=== PATIENT | female | born 1960 | race Caucasian/White ===

== ENCOUNTER → 2016-11-23 | Outpatient (CLI) | payer OTHER | END | disposition home or self-care (01) | LOC: C.PATHSPEC 16:18 | PROVIDERS: ATTEND Dermatology | DX: L82.1 Other seborrheic keratosis (principal) ==

== ENCOUNTER → 2016-12-04 | Outpatient (CLI) | payer OTHER ==
--- NOTE | 2016-12-04 15:09 | MAMMOGRAPHY REPORT ---
BILATERAL DIGITAL DIAGNOSTIC MAMMOGRAM TOMOSYNTHESIS WITH CAD AND TARGETED LEFT ULTRASOUND: 12/04/2016 CLINICAL HISTORY: The patient reports a palpable lump in her left breast for approximately 2 weeks. She also noted a pulling sensation involving the left breast approximately one month ago when she lif mikel her left arm; the pulling sensation has improved and now only intermittently occurs when lifting her arm. History of benign left breast excisional biopsy. TECHNIQUE: Breast tomosynthesis in addition to standard 2D mammography was performed. Current study was also evaluated with a Computer Aided Detection (CAD) system. Bilateral CC and MLO 2-D and tomosy nthesis images were obtained. COMPARISON: Comparison is made to exams dated: 12/20/2015 mammogram, 12/14/2014 mammogram, and 11/21/19 14 mammogram - [facility]. BREAST COMPOSITION: There are scattered areas of fibroglandular density in both breasts. FINDINGS: A triangle marker purcell the site of the palpable lump in the left upper outer quadrant. N o suspicious masses, calcifications, or areas of architectural distortion are seen mammographically. There has been no significant interval change compared to prior exams. A linear scar marker denotes a scar on the left anterior breast. Targeted ultrasound was performed of the area of the palpable lump pointed out by the patient, in the left breast at 1:00 approximately 8 cm from the nipple. Additionally, ultrasound was performed of t he area of the pulling sensation described by the patient, in the left 1 to 3:00 region extending fro m the periareolar region laterally. Sonographically normal tissue is seen, without evidence of a mas s or other suspicious sonographic abnormality. IMPRESSION: ACR BI-RADS CATEGORY 2: BENIGN, TARGETED ULTRASOUND ACR BI-RADS CATEGORY 2: BENIGN No suspicious mammographic or sonographic abnormality at the site of the palpable left breast lump an d pulling sensation pointed out by the patient. There is no mammographic or targeted sonographic danyell dence of malignancy. Recommend clinical follow-up for left breast symptoms, and recommend routine bi lateral screening mammograms in one year. The patient has been verbally notified of the results. Approximately 10% of breast cancers are not detected with mammography. A negative mammographic report should not delay biopsy if a clinically suggestive mass is present. Gabrielle Edwards M.D. ah/:12/04/2016 14:57:23 Insurance Claims Representative: Jesusita MOTT(R)(M), [facility] letter sent: Normal / BI-RADS Code: ACR BI-RADS Category 2: Benign Ultrasound BI-RADS: ACR BI-RADS Category 2: Benign
== END | disposition home or self-care (01) ==
LOC: C.MAMM 13:41
PROVIDERS: ATTEND Obstetrics & Gynecology
DX: N63 Unspecified lump in breast (principal)